=== PATIENT | male | born 1935 | race Caucasian/White ===

== ENCOUNTER 2024-12-03 13:33 | Outpatient (AMB) | payer OTHER, SELFPAY ==
--- NOTE | 2024-12-03 13:37 | A.OFFVIS_ITS ---
Intake Visit Reasons: 3 mnts f/u Accompanied by: Spouse Allergies oxycodone Allergy (Unknown, Verified 12/03/24 13:46) Unknown Medication List - Last Reconciled 12/03/24 by Allie Rodriguez CNP apixaban (Eliquis) 5 mg PO BID atenolol 100 mg PO DAILY diltiazem HCl CD 240 mg PO DAILY fluticasone propion-salmeterol 250-50 mcg/dose 1 ea inhalation BID furosemide 40 mg PO DAILY memantine (Namenda) 5 mg PO BID 90 days metformin ER 500 mg PO BID mirabegron ER (Myrbetriq) 50 mg PO DAILY montelukast 10 mg PO DAILY potassium chloride ER 20 mEq PO DAILY pramipexole mg PO quetiapine mg PO TID sertraline 50 mg PO DAILY HPI Comments Details: 89-year-old man with afib, PVD, DM, 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 He was doing okay. Memantine seemed to be helping with memory some. He would get stuck for words and have some trouble with word recall during conversations, but felt this was not happening as often since starting medication. Previously, he was having some hallucinations when falling asleep in the chair, but none recently. No behavioral problems. Sleep was okay. Mood was okay. 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, secondary Review of Systems Const Denies chills, Denies daytime sleepiness, Denies difficulty sleeping, Denies fatigue, Denies fever(s), Denies frequent falls, Denies headache(s), Denies increased appetite, Denies poor appetite, Denies snoring, Denies weakness, Denies weight gain and Denies weight loss Eyes Denies loss of vision ENT Denies vertigo, Denies dizziness and Denies headache(s) Card Denies chest pain at rest, Denies chest pain with activity, Denies syncope, De nies leg edema and Denies palpitations Resp Denies snoring GI Denies constipation, Denies heartburn, Denies diarrhea and Denies nausea Denies urinary frequency, Denies urinary incontinence and Denies urinary urgency Musc Denies abnormal gait, Denies numbness and Denies tingling Skin/Breast Denies dry skin and Denies rash Neuro Denies abnormal gait, Denies vertigo, Denies dizziness, Denies syncope, Denies frequent falls, Denies headache(s), Denies lack of coordination, Denies loss of vision, Reports memory loss, Denies numbness, Denies restless legs, Denies seizure-like activity, Denies tingling, Denies paresthesias, Denies tremor(s) and Denies weakness Psych Denies anxiety, Denies depression, Denies auditory hallucinations, Reports memory loss, Denies visual hallucinations and Denies suicidal ideation Endo Denies fatigue and Denies palpitations Physical Exam Const Other: General Appearance:? normal, in no acute distress. Skin:? no rashes, no significant birthmarks. Heart:? S1, S2 normal, no murmurs. Lungs:? clear anteriorly and posteriorly. Extremities:? R AKA Psych:? alert, cooperative with exam. Neuro Other: Mental Status:?Alert and awake with normal spontaneity of speech, fluency, and comprehension. Cranial Nerves:?Pupils are equal, round and reactive to light. External occular muscles are intact. Visual jacinto are full. Face is symmetrical. Facial sensations are normal. Tongue is midline. Palate elevates symmetrically. Shoulder shrugging is normal. Hearing to bedside conversation is normal. Motor Examination:?R AKA Sensory Exam:?....? Coordination:?No ataxia,?no titubation.? Gait Exam: In wheelchair Cerebellar Signs:?Pdkaly-sa-capl is okay. Extrapyramidal System:?No tremor, rigidity with normal facial expressions.? Pronator Drift:?Not present.? Involuntary Movements:?No tremors seen.? Speech:?Normal.? Assessment & Plan Assessment & Plan (1) Dementia with Lewy bodies: Code(s): G31.83 - Neurocognitive disorder with Lewy bodies; F02.80 - Dementia in other diseases classified elsewhere, unspecified severity, without behavioral disturbance, psychotic disturbance, mood disturbance, and anxiety Category: Medical Qualifiers: Dementia severity: unspecified severity Dementia behavioral or psychological symptom: unspecified whether behavioral, psychotic, or mood disturbance or anxiety Qualified Code(s): G31.83 - Neurocognitive disorder with Lewy bodies; F02.80 - Dementia in other diseases classified elsewhere, unspecified severity, without behavioral disturbance, psychotic disturbance, mood disturbance, and anxiety Plan: Continue quetiapine 25mg 1 tablet three times a day Continue memantine 5mg 1 tablet twice a day (2) Parkinsonism, secondary: Code(s): G21.9 - Secondary parkinsonism, unspecified Category: Medical Qualifiers: Secondary Parkinsonism type: unspecified secondary Qualified Code(s): G21.9 - Secondary parkinsonism, unspecified Plan: Continue pramipexole 0.125mg 1 tablet three times a day Continue rasagiline 0.5mg 1 tablet daily (3) Depression: Code(s): F32.A - Depression, unspecified Category: Medical Qualifiers: Depression Type: unspecified Qualified Code(s): F32.A - Depression, unspecified Plan: Continue sertraline 25mg 1 tablet daily (4) Multifactorial gait disorder: Code(s): R26.89 - Other abnormalities of gait and mobility Category: Medical Plan . Coding Level of Care Code [facility] Pt Level 4 (95030) Diagnoses Lewy body dementia, unspecified dementia severity, unspecified whether behavioral, psychotic, or mood disturbance or anxiety G31.83; F02.80 Dementia severity: unspecified severity Dementia behavioral or psychological symptom: unspecified whether behavioral, psychotic, or mood disturbance or anxiety Secondary parkinsonism, unspecified secondary Parkinsonism type G21.9 Secondary Parkinsonism type: unspecified secondary Depression, unspecified depression type F32.A Depression Type: unspecified Multifactorial gait disorder R26.89
--- OUTSIDE RECORDS SUMMARY | 2024-12-03 13:38 | XMS_ITS | Clinical Summary ---
Author Organization [facility] Address [address] [place] [address] Care Team Providers Care Service Center Appraiser Name Role Phone Aurora Solares MD Primary Care Provider [phone] Allergies Active Allergy Reactions Criticality Noted Date Comments House Dust Rhinorrhea 04/02/2018 Medications montelukast (SINGULAIR) 10 mg tablet Take 10 mg by mouth. Active budesonide-for moteroL (Symbicort) 160-4.5 mcg inhaler Inhale 2 puffs by mouth 2 times a day. 1 Active fluticasone propionate (FLONASE) 50 mcg/actuation nasal spray Administer 1 spray into each nostril daily as needed for rhinitis. 1 Active potassium chloride (K-TAB) 20 mEq CR tablet Take 1 tablet (20 mEq total) by mouth daily. 1 Active albuterol (PROAIR HFA,VENTOLIN HFA) 90 mcg inhaler Inhale 2 puffs (180 mcg total) by mouth every 6 hours as needed for wheezing or shortness of breath. 1 Active atenoloL (TENORMIN) 100 mg tablet Take 1 tablet (100 mg total) by mouth daily. 1 Active dilTIAZem CD (CARDIZEM CD) 240 mg 24 hr capsule Take 1 capsule (240 mg total) by mouth daily. 1 Active furosemide (LASIX) 40 mg tablet Take 1 tablet (40 mg total) by mouth daily. 1 Active pramipexole (MIRAPEX) 0.125 mg tablet Take 1 tablet (0.125 mg total) by mouth 3 times a day. 1 Active QUEtiapine (SEROquel) 50 mg tablet Take 1 tablet (50 mg total) by mouth nightly. 1 Active vitamin D3 25 mcg (1,000 unit) capsule Take 2 capsules (2,000 Units total) by mouth daily. 1 Active acetaminophen (TYLENOL) 325 mg tablet Take 2 tablets (650 mg total) by mouth every 6 hours as needed for fever. 1 Active dabigatran (PRADAXA) 150 mg capsule Take 1 capsule (150 mg total) by mouth every 12 hours. 1 Active docusate sodium (COLACE) 100 mg capsule Take 1 capsule (100 mg total) by mouth 2 times a day. 1 Active miconazole 2% powder Apply topically to the affected area 2 times a day. 1 Active sodium chloride 0.9% injection Infuse 0.3-1 Syringes (3-10 mL total) intravenously See admin instructions. 1 Active heparin 10 unit/mL syringe flush 5-15 mL by intra-catheter route every 12 hours. 1 Active heparin 10 unit/mL syringe flush 5-15 mL by intra-catheter route See admin instructions. 1 Active polyethylene glycol 3350 (MIRALAX) 17 gram packet Take 1 packet (17 g total) by mouth daily. Mix powder in 4 to 8 oz of water, juice, coffee, or tea. 1 Active senna (SENOKOT) 8.6 mg tablet Take 2 tablets (17.2 mg total) by mouth 2 times a day as needed for constipation. 1 Active oxyCODONE IR (ROXICODONE) 5 mg tablet Take 0.5-1 tablets (2.5-5 mg total) by mouth every 6 hours as needed for pain. Max Daily Amount: 20 mg 20 tablet 1 Active Active Problems Problem Noted Date Diagnosed Date Parkinson's disease dementia 06/29/2020 MRSA bacteremia 06/29/2020 Assessment & Plan (07/11/2020 12:11 PM EST): WBC uptrending on 06/29 to 17.7 in setting of septic arthritis and necessary AKA on 06/23. Stump site developed erythema, BCx obtained 08/14 MRSA. LA negative at 1.5. ID consulted. TTE did not show vegetations. 07/01 repeat BCx positive 05/16 GPC in clusters. His culture from 07/03 has remained negative. Ultimately wound on leg closed on 07/[address] in [address]. ID recommended 4 weeks of vancomycin from D1 07/03, to receive vanco through 07/30/2020. PICC line for half-way antibiotics placed on 07/08. Maintained on vancomycin per AUC:IVAN through the pharmacy target trough of 10-20. While on antibiotic therapy, he will need weekly CBC with differential, CMP's, and vancomycin troughs faxed to Dr Fernandes. . An appointment with infectious disease has been scheduled for the patient on 07/21/2020. 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 Required repeat revision on 06/30 for infection at amputatoin site. Went back to OR on 07/02 and 07/04 with debridement and lateral closure. Went to OR again 07/07 for closure and Vac dressing at the incision site. Managed by ortho. -Management per Ortho Septic arthritis of knee 06/09/2020 Assessment & Plan (07/09/2020 12:02 PM EST): 3 I+D and washouts while admitted. Ultimately decided to have AKA after discussion with orthopedic team and family. OR on 06/24 for AKA and tolerated procedure well. Subsequently he has grown MRSA and see above for further details. Had washout of AKA site on 07/02, 07/04, 07/07 with closure, with vac still in place as of 07/09. Management per ortho. A-fib 06/09/2020 Assessment & Plan (07/10/2020 2:02 PM EST): Afib, on dabigatran (Pradaxa) 150mg. CHADS VASc is 4 (age = 4, HTN, CHF.) No indication for bridging in the perioperative period and Pradaxa was held due to frequent OR visits. His HR has been elevated at times, but options limited for rate control as his BP has been borderline at times. On home atenolol 100mg daily and diltiazem 240mg daily. While inpatient, atenolol 100mg daily was continued and dilt was transitioned to 60 Q6 with holding parameters in the setting of frequent OR visits. Dabigatran 150 BID was resumed evening of 07/08 after PICC placement. - Rate control: atenolol 100mg daily, dilt 60mg q6 - can consider switching dilt to CD formulation 240 daily closer to discharge - Anticoagulation: dabigatran 150mg PO BID restarted Parkinson disease 06/09/2020 Assessment & Plan (07/11/2020 12:12 PM EST): On home pramipexole 0.125mg 3 times a day. Takes quetapine (Seroquel) 25 mg at bedtime. Has had hallucinations and confusion postop before. At risk for delirium, given multiple trips to the OR. Maintained on delirium precautions: Window bed, frequent reorientation, promote sleep-wake cycle, avoid sedating medications. Cifuentes discontinued. Avoided benedryl, hydroxyzine and other anticholinergics. Avoided benzodiazepines. Continued home pramipexole and uptitrated Seroquel to 50mg nightly with good effect. - Continue home pramipexole 0.125 mg TID for movement disorder - Continue Seroquel 50 mg nightly and seems to be doing well - minimize restraints, emphasize reorientation HTN (hypertension) 06/09/2020 Assessment & Plan (07/09/2020 12:01 PM EST): On home Atenolol 100mg every day and diltiazem 240mg every day. His blood pressures have been OK to borderline low earlier in the hospitalization, but now seems to be improved and stable. Was continued on atenolol 100mg daily and diltiazem was changed to 60 Q6h. He has not reported any episodes of light headed or dizziness. Consider switching diltiazem to long acting formulation closer to discharge. - atenolol 100mg PO daily and diltiazem 60 PO Q6h HARDIK (obstructive sleep apnea) 06/09/2020 Assessment & Plan (07/09/2020 11:55 AM EST): Ordered for CPAP but not compliant. Ordered for CPAP inpatient however noncompliant, stated it feels uncomfortable and not able to tolerate. Asthma 06/09/2020 Assessment & Plan (07/09/2020 11:53 AM EST): On home Symbicort BID and Singulair qhs, with fluticasone BID prn allergies and Albuterol inhaler prn. Saturating well on RA, no respiratory distress and no wheezing on exam. Continued home meds. - Continue Symbicort and Singulair CHF (congestive heart failure) 06/09/2020 Assessment & Plan (07/10/2020 2:04 PM EST): Hx of CHF (no echo on file, echo per chart review mild to moderate , diffuse thickening of the aortic cusp with reduced excursion and 1+ MR, EF 60-65%). Per pharmacy, hasn't filled furosemide since February. However, patient reported that he has been taking Lasix 40mg twice daily. He is uncertain why the last refill was in February, reports that his helps with his medications as has had some difficulty. Also on other cardiac meds per afib section. He has appeared to be comfortable and close to euvolemic on exam in beginning of hospitalization, thus lasix was held due to frequent OR trips. 07/07/20 he was noted to be slightly more swollen / edematous in his upper extremities, weight slightly up as well. He was started on lasix 40 daily on 07/07 and he diuresed well. Continued on lasix 40 daily and should have I&Os monitored and consider holding or decreasing dose depending on output. - Continue furosemide 40mg daily for now given stable labs and significant scrotum edema. Goal ~ -500 cc per day - monitor urine output and weights - monitor lytes, Cr PVD (peripheral vascular disease) 06/09/2020 Mobility impaired Impaired mobility and ADLs Social History Tobacco Use Types Packs/Day Years Used Date Smoking Tobacco: Never Smokeless Tobacco: Never Alcohol Use Standard Drinks/Week Comments Yes 0 (1 standard drink = 0.6 oz pur e alcohol) social Sex and Gender Information Value Date Recorded Sex Assigned at Not on file Legal Sex Male 4:25 PM EST Gender Identity Not on file Sexual Orientation Not on file Last Filed Vital Signs Vital Sign Reading Time Taken Comments Blood Pressure 102/62 07/15/2020 11:20 AM EST Pulse 67 07/15/2020 11:00 AM EST Temperature 37 C (98.6 F) 07/15/2020 11:00 AM EST Respiratory Rate 18 07/15/2020 11:0 0 AM EST Oxygen Saturation 95% 07/15/2020 11: 00 AM EST Inhaled Oxygen Concentration - - Weight 80.2 kg (176 lb 12.9 oz) 07/07/2020 8:06 PM EST Height 175.3 cm (5' 9 ) 06/30/2020 2:44 PM EST Body Mass Index 26.11 06/30/2020 2:44 PM EST Plan of Treatment Health Maintenance Due Date Last Done Comments Pneumococcal Vaccine: 50+ Years (1 of 2 - PCV) 1954 DTaP,Tdap,and Td Vaccines (1 - Tdap) 07/25/1959 Zoster Vaccines (1 of 2) 07/25/1987 RSV Vaccine (60+ years old and patients) (1 - 1-dose 75+ series) 2012 Basic Metabolic Panel 07/15/2021 07/15/2020 , 07/14/2020, 07/13/2020, Additional history exists COVID-19 Vaccine ( season) 2024 Alcohol/Substance Use Screening 05/13/2024 Depression Screening and Follow-Up 05/13/2024 Health Care Proxy Review 05/13/2024 Social Drivers of Health Annual Screening 05/13/2024 Influenza Vaccine (#1) 2025 , 01/30/2018, 04/03/2017 Hepatitis B Vaccines Aged Out No long er eligible based on patient's age to complete this topic Procedures * Due to [employer] law, this organization might not be sharing negative HIV tests. Procedure Name Priority Date/Time Associated Diagnosis Comments BASIC METABOLIC PANEL Routine 07/15/2020 8:01 AM EST from Last 3 Months or Most Recently Relevant to Health Maintenance Results * Due to [employer] law, this organization might not be sharing negative HIV tests. * (ABNORMAL) Basic Metabolic Panel (07/15/2020 8:01 AM EST) NA 141 135 - 145 mmol/L 07/15/2020 8:46 AM EST [facility] K 3.7 3.5 - 5.3 mmol/L 07/15/2020 8:46 AM EST [facility] Cl 105 97 - 110 mmol/L 07/15/2020 8:46 AM EST [facility] CO2 31 24 - 32 mmol/L 07/15/2020 8:46 AM EST [facility] BUN 14 7 - 23 mg/dL 07/15/2020 8:46 AM EST [facility] Creatinine 0.80 0.60 - 1.30 mg/dL 07/15/2020 8:46 AM EST [facility] Glucose 135(H) 70 - 99 mg/dL 07/15/2020 8:46 AM EST [facility] Calcium 9.2 8.7 - 10.7 mg/dL 07/15/2020 8:46 AM EST [facility] Anion Gap 5 5 - 15 07/15/2020 8:46 AM EST [facility] eGFR Non- 83(L) >=90 mL/min/BS A 07/15/2020 8:46 AM EST [facility] eGFR >90 >=90 mL/min/BS A 07/15/2020 8:46 AM EST [email or web address] Comment: Units = mL/min/1.73 m2 Glomerular Filtration Rate (GFR) is estimated based on the CKD-EPI Creatinine Equation (2009). 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 06/29/2020 06/29/[address] [place] [address] [place] [address] Advance Directives Documents on File Type Date Recorded Patient Audit Intern Expl anation Health Care Proxy 06/09/2020 1:39 PM 01-20 * Full Code (Latest Code Status on File) Date Activated Date Inactivated Comments 07/04/2020 5:38 PM 07/15/2020 6:27 PM * Full Code Date Activated Date Inactivated Comments 06/29/2020 6:38 PM 07/04/2020 5:38 PM * Presumed Full Code Date Activated Date Inactivated Comments 06/23/2020 5:05 PM 06/29/2020 6:38 PM * Full Code Date Activated Date Inactivated Comments 06/13/2020 3:09 PM 06/23/2020 5:05 PM * Full Code Date Activated Date Inactivated Comments 06/09/2020 12:26 AM 06/13/2020 3:09 PM Healthcare Agents on File Name Relationship Healthcare Agent Relationshi p Communication Sheryl Uriel Spouse Health Care Agent [phone] (Home) Malika Clements Daughter [facility] Care [facility] Care Teams Service Center Appraiser Relationship Specialty Start Date End Date Aurora Solares MD [address] [place] [address] [phone] PCP - General 06/16/20
--- OUTSIDE RECORDS SUMMARY | 2024-12-03 13:39 | XMS_ITS | Clinical Summary ---
Author Organization [place] [address] [facility] Building Address [address] [place] [address] Phone Care Team Providers Care Clinical Data Assistant Name Role Phone Filippo Keita MD Primary Care Provider Allergies Active Allergy Reactions Criticality Noted Date Comments Bee Pollen 08/29/2020 House Dust Runny nose 04/02/2018 Oxycodone 11/01/2023 Medications blood-glucose meter kit 1 Kit by Does not apply route 2 times daily for 360 days. 1 Active ZINC ORAL Take by mouth. Activ e apixaban (Eliquis) 5 mg tablet TAKE ONE TABLET BY MOUTH TWICE A DAY 4 Active ascorbic acid, vitamin C, 500 mg capsule Take by mouth. Acti ve ferrous sulfate 325 mg (65 mg elemental iron) tablet Take 1 tablet by mouth daily. Active mirabegron (MYRBETRIQ) 25 mg 24 hr tablet Take 2 tablets (50 mg total) by mouth 1 (one) time each day. Active pramipexole (MIRAPEX) 0.125 mg tablet TAKE ONE TABLET BY MOUTH THREE TIMES A DAY 2 Active rasagiline (AZILECT) 0.5 mg tablet Take 1 tablet by mouth daily. Active sertraline (ZOLOFT) 50 mg tablet Take 1 Tablet by mouth every morning. Active doxycycline (ADOXA) 100 mg tablet Take 1 tablet (100 mg total) by mouth 2 (two) times a day. 4 Active potassium chloride (KLOR-CON M20) 20 mEq CR tablet TAKE ONE TABLET BY MOUTH EVERY DAY 90 tablet 1 5 Active furosemide (LASIX) 40 mg tablet TAKE ONE TABLET BY MOUTH EVERY MORNING 90 tablet 1 5 Active dilTIAZem CD (CARDIZEM CD) 240 mg 24 hr capsule TAKE ONE CAPSULE BY MOUTH ONCE DAILY 90 capsule 1 5 Active atenoloL (TENORMIN) 100 mg tablet TAKE ONE TABLET BY MOUTH ONCE DAILY 90 tablet 1 5 Active montelukast (SINGULAIR) 10 mg tablet TAKE ONE TABLET BY MOUTH AT BEDTIME 90 tablet 1 5 Active blood sugar diagnostic (FreeStyle Lite Strips) test strip Use as instructed 100 each 2 5 Active memantine (NAMENDA) 5 mg tablet Take 1 tablet (5 mg total) by mouth 2 (two) times a day. 5 Active blood-glucose sensor (FreeStyle Imani 3 Plus Sensor) device Change sensor every 14 days 2 each 11 5 Active blood-glucose,r eceiver,cont (FreeStyle Imani 3 [place]) misc Use daily to check BS 1 each 5 Active fluticasone-marco antonio meterol (ADVAIR DISKUS) 250-50 mcg/dose diskus inhaler Inhale 1 puff by mouth 2 (two) times a day. Rinse mouth with water after use to reduce aftertaste and incidence of candidiasis. Do not swallow. 60 each 2 5 01/17/20 25 Active ketorolac (ACULAR) 0.5 % ophthalmic solution 5 Active cetirizine (ZyrTEC) 10 mg tablet Take 1 tablet (10 mg total) by mouth 1 (one) time each day. 90 each 5 01/17/20 25 Active metFORMIN XR (GLUCOPHAGE-XR) 500 mg 24 hr tablet TAKE ONE TABLET BY MOUTH TWO TIMES A DAY WITH MEALS; DO NOT CRUSH, CHEW OR SPLIT 180 tablet 1 5 Active latanoprost (XALATAN) 0.005 % ophthalmic solution Administer 1 drop into both eyes at bedtime. 5 Active Restasis 0.05 % ophthalmic emulsion Administer 1 drop into both eyes every 12 (twelve) hours. 5 Active albuterol HFA (PROAIR HFA ; PROVENTIL HFA ; VENTOLIN HFA) 90 mcg/actuation inhalerIndicati ons:Asthma, unspecified asthma severity, unspecified whether complicated, unspecified whether persistent Inhale 2 puffs by mouth every 6 (six) hours if needed for wheezing. every 4 to 6 hours as needed 18 g 3 5 Active albuterol HFA (PROAIR HFA ; PROVENTIL HFA ; VENTOLIN HFA) 90 mcg/actuation inhaler INHALE 1 TO 2 PUFFS BY MOUTH EVERY 4 TO 6 HOURS NEEDED 8 11/19/19 25 Discontin ued(Reord er) albuterol HFA (PROAIR HFA ; PROVENTIL HFA ; VENTOLIN HFA) 90 mcg/actuation inhaler Inhale 2 puffs by mouth every 6 (six) hours if needed for wheezing. every 4 to 6 hours as needed 18 g 3 5 11/21/19 25 Discontin ued(Reord er) Hospital, Clinic, or Other Facility Administered Medication Ordered Dose Route Frequency Start Date End Date Status perflutren lipid microsphere (DEFINITY) 1.3 mL in sodium chloride 0.9% 8.7 mL injection 10 mL IV Once in imaging 11/11/2024 11/11/2024 End ed Active Problems Problem Noted Date Diagnosed Date Cellulitis of leg 11/16/2024 Leg edema 11/16/2024 Amputation stump complication ([facility] V24, [facility] V28) 09/10/2024 Aortic stenosis 12/18/2021 Overview (03/12/2024): Last Assessment & Plan: Mean andAortic stenosis is only moderate. Mean and peak gradients of 20 and 30.3 mmHg respectively with a VTI ratio unchanged from prior echo at 0.23 and aortic valve area 1.1 cm . He is asymptomatic. We will continue to follow. Assessment & Plan (08/24/2024 12:04 PM EDT): He does endorse worsening breathlessness when he uses his prosthesis in his walker. He appears to be euvolemic upon exam today. He continues to endorse good urine output on his current dose of Lasix. We will update surveillance echocardiogram to further evaluate progression of aortic stenosis. Orders: Transthoracic echocardiogram (TTE) complete with PRN contrast, bubble, strain, and 3D order panel; Future perflutren lipid microsphere (DEFINITY) 1.3 mL in sodium chloride 0.9% 8.7 mL injection Uncontrolled type 2 diabetes mellitus with hyperglycemia ([facility] V24, [facility] V28) 02/20/2021 PVD (peripheral vascular disease) ([facility] V24) 09/01/2020 Lumbar radiculopathy 09/01/2020 MRSA bacteremia 09/01/2020 Osteoarthritis of left knee 09/01/2020 Quadriceps tendon rupture 09/01/2020 Overview (03/12/2024): R leg, pt was at work 03/23/2019, turned quickly and felt a pop. s/p tendon repair at [facility] 04/2019. Adm to [facility] 02/2020 w/ MSSA bacteremia and septic arthritis of R knee w/ involvement of previous quad repair. Transferred/admitted to [facility] 06/08/2020, D/C 07/15/2020. 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, right ([facility] V24, [facility] V28) 06/27/2020 Asthma 06/09/2020 HARDIK (obstructive sleep apnea) 06/09/2020 Parkinson's disease dementia ([facility] V24, [facility] V28) 06/09/2020 Septic arthritis of knee ([facility] V24, [facility] V 28) 06/09/2020 Lumbar back pain with radicu lopathy affecting right lower extremity 10/02/2018 CHF (congestive heart failure) ([facility] V24, [facility] V28) 01/17/2018 Overview (03/12/2024): Last Assessment & Plan: Volume status appears acceptable today. Continue furosemide. He will call the office or make any more than 3 pounds in 1 day or 5 pounds in 1 week. Low-salt diet encouraged. Assessment & Plan (08/24/2024 12:04 PM EDT): Appears to be euvolemic upon exam today. He will continue on his current dose of furosemide. Encouraged to continue to follow a low-sodium diet and perform daily weights. Patient will reach out to our office with a weight gain of 2 pounds in 1 day or 5 pounds in 5 days accompanied by worsening peripheral edema, shortness of breath or abdominal distention. Allergic rhinitis 12/09/2017 Dyslipidemia 12/09/2017 Overview (03/12/2024): Last Assessment & Plan: Last lipid panel from December 2021. Total cholesterol 119, HDL 35, LDL 54. Not on statin therapy. Vitamin D insufficiency 12/09/2017 Bursitis of right hip 11/05/2017 Right-sided low back pain without sciatica 11/05 Left knee pain 09/19/2017 Overview (03/12/2024): Comments: x-rays left knee 08/20/17 = severe OA Atrial fibrillation (CMS/HCC V24, CMS/HCC V28) 0 05/23/2017 Overview (03/12/2024): On Pradaxa Last Assessment & Plan: Chronic atrial fibrillation. Rate controlled on atenolol and diltiazem, continue. He is on Eliquis 2.5 mg twice daily and he was on this dose due to his age and weight. His prosthesis add 7.5 pounds to his weight which has to be subtracted at each visit and calculated. Back when he was started on the Eliquis his weight was 140 pounds with prosthesis therefore subtracting this out made his weight less than 60 kg. He is now greater than 60 kg. Based off age, weight, and renal function he should be on Eliquis 5 mg twice daily for CVA prophylaxis. Him going to increase this dose today. He verbalized understanding of taking the new dose. Assessment & Plan (08/24/2024 12:04 PM EDT): Chronic atrial fibrillation. He is rate controlled with atenolol and diltiazem. Continue to be anticoagulated with Eliquis as his is greater than 60 kg and his creatinine is less than 1.5. Educated on risks and benefits of continuing with anticoagulation including increased risk for hemorrhage and decreased risk for stroke. Encouraged to seek emergent medical attention should the patient sustain a fall involving a head strike. The patient understands these risks and agrees to continue. HTN (hypertension) 05/23/2017 Overview (03/12/2024): Last Assessment & Plan: 110/70 in office today, well-controlled on current therapy. Continue regimen as above. Assessment & Plan (08/24/2024 12:04 PM EDT): Acceptable during today's exam with a reading of 110/64. I have made no changes to his medications. He will continue on atenolol, diltiazem and Lasix. Educated on the importance of diet lifestyle to help further assist in reducing blood pressure. The patient was encouraged to follow low-salt low-fat diet, make purposeful strides towards weight loss, and engage in routine aerobic exercise as tolerated. Orders: ECG 12 lead Erectile dysfunction 05/23/2017 GERD (gastroesophageal reflux disease) 8 Inguinal hernia 05/23/2017 Overview (03/12/2024): right Insomnia 05/23/2017 Parkinson's disease ([facility] V24, [facility] V28) 0 05/23/2017 Encounters Date Type Department Care Team Description 11/20/2024 Telephone Pulmonolgy [facility] [address] [address] Joselin Lantigua MD Medication Problem 11/18/2024 10:45 AM EDT [facility] [address] [place] [address] Joselin Lantigua MD Pneumonia of both lower lobes due to infectious organism (Primary Dx); Moderate asthma, unspecified whether complicated, unspecified whether persistent; PLMD (periodic limb movement disorder); Seasonal allergic rhinitis due to pollen; HARDIK (obstructive sleep apnea) 11/11/2024 1:00 PM EDT Ancillary Procedure [facility] [address] [place] [address] Aortic valve stenosis, etiology of cardiac valve disease unspecified 10/12/2024 10:00 AM EDT Consult Internal Medicine - [address] [place] [address] Filippo Keita MD Pre-operative clearance (Primary Dx); Uncontrolled type 2 diabetes mellitus with hyperglycemia ([facility] V24, [facility] V28); Paroxysmal atrial fibrillation ([facility] V24, [facility] V28); Blurred vision 09/22/2024 11:30 AM EDT Consult Endocrinology - [address] [phone] Fabiana Mauricio PA Uncontrolled type 2 diabetes mellitus with hyperglycemia ([facility] V24, [facility] V28) (Primary Dx) from Last 3 Months Immunizations Name Administration Dates Next Due Influenza trivalent, 0.5mL ( Fluad) 65yo and older 02/03/2024,02/08/2021 Influenza, Unspecified 04/12/2023 Network SARS-CoV-2 COVID-19, mRNA, LNP-S, preservative free 03/09/2021,09/03/2020,08/12/2020 Pneumococcal, Unspecified 07/19/2022,07/13/2022 Td Tetanus diptheria (Tdvax) 7yo and older 05/13 Zoster recombinant (Shingrix ) 19yo and older 2022 Surgical History Surgery Date Site/Laterality Comments HERNIA REPAIR PROCEDURE:HERNIA REPAIR PROSTATECTOMY PROCEDURE:PROSTATECTOMY COLONOSCOPY 04/05/2010 PROCEDURE: HISTORICAL COLONOSCOPY OTHER SURGICAL HISTORY 06/23/2020 Right PROCEDURE: HISTORICAL ABOVE KNEE AMP; COMMENT: R leg failed repair of extensor mechanism w/ subsequent osteomyelitis. OTHER SURGICAL HISTORY 06/2020 Right PROCEDURE: NC INCISION & DRAINAGE ABSCESS COMPLICATED/MULTIPLE; COMMENT: Chronic osteomyelitis R knee, 2, 2/4, 06/21, 06/30, and post amp I+D of R residual limb 07/04/2020 HERNIA REPAIR N/A PROCEDURE: HISTORICAL HERNIA REPAIR/ING KNEE SURGERY Left PROCEDURE: HISTORICAL KNEE SURGERY; COMMENT: knee replacement Medical History Medical History Date Comments Cancer ([facility] V24, [facility] V28) DX:Cancer ([facility]) A-fib ([facility] V24, [facility] V28) DX:A-fib ([facility]) Hypertension DX:Hypertension Parkinson's disease ([facility] V24, [facility] V28) 05/23/2017 DX:Parkinson's disease ([facility]) Atrial fibrillation ([facility] V24, [facility] V28) 05/23/2017 DX:Atrial fibrillation ([facility]) ; COMMENT: On Pradaxa Erectile dysfunction 05/23/2017 DX:Erectile dysfunction Hypertension 05/23/2017 DX:Hypertension Prostate cancer ([facility] V24 , [facility] V28) 05/23/2017 DX:Prostate cancer ([facility]) Insomnia 05/23/2017 DX:Insomnia GERD (gastroesophageal reflux disease) DX:GERD (gastroesophageal reflux disease) Inguinal hernia 05/23/2017 DX:Inguinal naima ia; COMMENT: right Osteomyelitis of knee region ([facility] V24, [facility] V28) 08/29/2020 DX:Osteomyelitis of knee reg ion ([facility]) Osteoarthritis of left knee 09/01/2020 DX:O steoarthritis of left knee MRSA bacteremia 09/01/2020 DX:MRSA bacterem ia Vitamin D insufficiency 12/09/2017 DX:Vitam in D insufficiency 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, right ([facility] V24, [facility] V28) 08/29/2020 DX:S/P AKA (above knee amput ation) unilateral, right ([facility]) Right-sided low back pain wi thout sciatica 11/05/2017 DX:Right-sided low back pain without sciatica Bursitis of right hip 11/05/2017 DX:Bursiti s of right hip PVD (peripheral vascular dis ease) ([facility] V24) 09/01/2020 DX:PVD (peripheral vascular disease) ([facility]) History of prostate cancer 07/29/2017 DX:Hi story of prostate cancer; COMMENT: Comments: s/p prostatectomy -2008 Dyslipidemia 12/09/2017 DX:Dyslipidemia CHF (congestive heart failur e) ([facility] V24, [facility] V28) 01/17/2018 DX:CHF (congestive heart fa ilure) ([facility]) Allergic rhinitis 12/09/2017 DX:Allergic rh initis Asthma 06/09/2020 DX:Asthma Lumbar radiculopathy 09/01/2020 DX:Lumbar r adiculopathy 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 s/p tendon repair at [facility] 04/2019. Adm to [facility] 02/2020 w/ MSSA bacteremia and septic arthritis of R knee w/ involvement of previous quad repair. Transferred/admitted to [facility] 06/08/2020, D/C 07/15/2020. Type 2 diabetes mellitus wit hout complications ([facility] V24, [facility] V28) DX:Type 2 diabetes mellitus without complications ([facility]) Family History Medical History Relation Name Comments Coronary artery disease Brother Diabetes Brother Hypertension Daughter 1 Arthritis Father Other: othere Father hx of several staff infections. Arthritis Mother Diabetes Son Relation Name Status Comments Brother Alive Daughter 1 Alive Daughter 2 Alive Father Mother Sister 1 Alive Sister 2 Alive Son Alive Social History Tobacco Use Types Packs/Day Years Used Date Smoking Tobacco: Never Smokeless Tobacco: Never Tobacco Cessation:Counseling Given: Not Answered Alcohol Use Standard Drinks/Week Comments Yes 0 (1 standard drink = 0.6 oz pur e alcohol) Sex and Gender Information Value Date Recorded Sex Assigned at Male 07/07/2024 2:27 PM EST Legal Sex Male 10:20 AM EST Gender Identity Male 07/07/2024 2:27 PM EST Sexual Orientation Straight 07/07/2024 2: 27 PM EST Obstetrics History Last Filed Vital Signs Vital Sign Reading Time Taken Comments Blood Pressure 111/75 11/18/2024 10:34 AM EDT Pulse 61 11/18/2024 10:34 AM EDT Temperature 36.7 C (98 F) 11/18/2024 10:34 AM EDT Respiratory Rate 20 11/18/2024 10:34 AM EDT Oxygen Saturation 96% 11/18/2024 10:34 AM EDT Inhaled Oxygen Concentration - - Weight 77.6 kg (171 lb) 11/18/2024 10:34 AM EDT Height 175.3 cm (5' 9 ) 11/18/2024 10:34 AM EDT Body Mass Index 25.25 11/18/2024 10:34 AM EDT Plan of Treatment Upcoming Encounters Date Type Department Care Team (Late st Contact Info) Description 12/15/2024 1:[address] [facility] Scan [address] [place] [address] 12/23/2024 9:45 AM EDT Office Visit Endocrinology [address] [phone] Fabiana Mauricio PA [address] [place] [address] 02/18/2025 12:45 PM EDT Ancillary Procedure [address] [phone] 02/18/2025 1:30 PM EDT Office Visit [address] [phone] Joselin Lantigua MD [address] [place] [address] 03/16/2025 9:45 AM EST Office Visit Internal Medicine - [address] [phone] Filippo Keita MD [address] [place] [address] 03/25/2025 2:00 PM EST Office Visit [facility] [address] [place] [phone] Nicholas Hernández MD [address] [place] [phone] Health Maintenance Due Date Last Done Comments Diabetes: Annual Foot Exam 07/25/1945 Falls Risk Assessment 04/21/2022 Medicare Annual Wellness Visit 04/21/2022 Social Influencers of Health Screening 04/21/2022 COVID-19 Vaccine ( season) 2024 03/15/2023, 03/09/2021, 09/03/2020, Additional history exists Depression Screening 05/13/2024 Influenza Vaccine (#1) 2025 , 04/12/2023, 02/12/2023, Additional history exists Diabetes: Blood Sugar Control Test (HGBA1C) 03/25/2025 09/22/2024, 02/03/2024, 02/03/2024 Diabetes: Annual Retina Eye Exam 04/13/2025 04/13/2024 Hypertension/CHF/CAD Annual BMP Blood Test 09/22/2025 09/22/2024, 02/03/2024, 02/03/2024, Additional history exists Cholesterol Screening (Lipid Panel) 09/22/2029 09/22/2024, 02/03/2024, 02/03/2024 DTaP,Tdap,and Td Vaccines (2 - Td or Tdap) 05/13/2030 05/13/2020 Pneumococcal Vaccine: 50+ Years Completed 07/20/2022, 07/19/2022, 07/13/2022 Zoster Vaccines Completed 09/17/2022, 2022 RSV Immunization Adult Patients Completed 04/14/2024 HIB Vaccines Aged Out No longer eligi ble based on patient's age to complete this topic HPV Vaccines Aged Out No longer eligi ble based on patient's age to complete this topic Hepatitis A Vaccines Aged Out No long er eligible based on patient's age to complete this topic Hepatitis B Vaccines Aged Out No long er eligible based on patient's age to complete this topic IPV Vaccines Aged Out No longer eligi ble based on patient's age to complete this topic MMR Vaccines Aged Out No longer eligi ble based on patient's age to complete this topic Meningococcal ACWY Vaccine Aged Out N o longer eligible based on patient's age to complete this topic Meningococcal B Vaccine Aged Out No l onger eligible based on patient's age to complete this topic RSV Immunization Patients Under 20 months Aged Out No longer eligible based on patient's age to complete this topic Varicella Vaccines Aged Out No longer eligible based on patient's age to complete this topic Procedures Procedure Name Priority Date/Time Associated Diagnosis Comments TRANSTHORACIC ECHOCARDIOGRAM (TTE) COMPLETE W/ CONTRAST Routine 11/11/2024 1:45 PM EDT Aortic valve stenosis, etiology of cardiac valve disease unspecified COMPREHENSIVE METABOLIC PANEL Routine 09/22/2024 12:58 PM EDT Dyslipidemia Uncontrolled type 2 diabetes mellitus with hyperglycemia (CMS/HCC V24, CMS/HCC V28) LIPID PANEL WITH REFLEX TO DIRECT LDL Routine 09/22/2024 12:58 PM EDT Dyslipidemia Uncontrolled type 2 diabetes mellitus with hyperglycemia (CMS/HCC V24, CMS/HCC V28) COMPLETE BLOOD COUNT Routine 09/22/2024 12:58 PM EDT Paroxysmal atrial fibrillation (CMS/HCC V24, CMS/HCC V28) HEMOGLOBIN A1C Routine 09/22/2024 12:58 PM EDT Uncontrolled type 2 diabetes mellitus with hyperglycemia (CMS/HCC V24, CMS/HCC V28) MICROALBUMIN CREATININE URINE RATIO Routine 09/22/2024 12:58 PM EDT Uncontrolled type 2 diabetes mellitus with hyperglycemia (CMS/HCC V24, CMS/HCC V28) POC GLUCOSE Routine 09/22/2024 11:58 AM EDT Uncontrolled type 2 diabetes mellitus with hyperglycemia (CMS/HCC V24, CMS/HCC V28) POC GLUCOSE Routine 09/22/2024 11:31 AM EDT Uncontrolled type 2 diabetes mellitus with hyperglycemia (CMS/HCC V24, CMS/HCC V28) from Last 3 Months Results * (ABNORMAL) TRANSTHORACIC ECHOCARDIOGRAM (TTE) COMPLETE W/ CONTRAST (11/11/2024 1:45 PM EDT) Left At[facility] Minor [place] 7.6 cm CV PACS Left At[facility] Major [place] 7.8 cm CV PACS LA Area Sys (A2C) 30 cm2 CV PACS LA Area Sys (A4C) 28 cm2 CV PACS LA Volume (BP) 91 mL CV PACS LA Size 6.0 cm CV PACS RA Area 21.5 cm2 CV PACS RA 2D Volume 69 mL CV PACS AV Mean Gradient 29 mmHg CV PACS Ao VTI 78.0 cm CV PACS AV Peak Saul 3.5 m/s CV PACS AV Peak Gradient 50 mmHg CV PACS AV Area Continuity Equation 0.7 cm2 CV PACS AV Area Peak Velocity 0.7 cm2 CV PACS Aortic Sinus Valsalva 3.7 cm CV PACS Ascending Aorta 3.6 cm CV PACS IVC Proximal 2.4 cm CV PACS IVSD 1.2(A) 0.6 - 1.0 cm CV PACS LVIDD 5.5 4.2 - 5.8 cm CV PACS LVIDS 3.7 2.5 - 4.0 cm CV PACS LVOT Diameter 2.1 cm CV PACS LVOT Mean Saul 0.4 m/s CV PACS LVOT Mean Grad 1 mmHg CV PACS LVOT Mean Grad 1 mmHg CV PACS LVOT Mean Grad 1 mmHg CV PACS LVOT Mean Grad 1 mmHg CV PACS LVOT Peak VTI 14.9 cm CV PACS LVOT Peak Saul 0.7 m/s CV PACS LVOT Peak Gradient 2 mmHg CV PACS LVPWD 1.3(A) 0.6 - 1.0 cm CV PACS MV E' Tissue Velocity Lateral 10 cm/s CV PACS MV E' Tissue Velocity Septal 8 cm/s CV PACS LVOT Area 3.5 cm2 CV PACS LVOT Stroke Volume 52 mL CV PACS MV Deceleration [place] 7.4 m/s2 CV PACS E Wave Deceleration Time 134 119 - 242 ms CV PACS MV PHT 39 ms CV PACS MV Peak E Saul 1.02 m/s CV PACS MV Mean Gradient 1 mmHg CV PACS MV Mean Gradient 1 mmHg CV PACS MV Mean Gradient 1 mmHg CV PACS MV Mean Gradient 1 mmHg CV PACS MV Mean Gradient 1 mmHg CV PACS MV VTI 14.5 cm CV PACS Mitral Valve Max Velocity 1.0 m/s CV PACS MV Peak Gradient 4 mmHg CV PACS MV Area PHT 5.6 cm2 CV PACS MV Area Continuity Equation 3.6 cm2 CV PACS PV Acceleration Time 99 ms CV PACS PV Acceleration Time 81 ms CV PACS PV Acceleration Time 90 ms CV PACS PV Mean Gradient 1 mmHg CV PACS PV Mean Gradient 1 mmHg CV PACS PV VTI 15.7 cm CV PACS PV Peak Velocity 0.9 m/s CV PACS PV Peak Gradient 3 mmHg CV PACS RV Diastolic Basal Dimension 4.6(A) 2.5 - 4.1 cm CV PACS RV S' 9 cm/s CV PACS TAPSE 31 mm CV PACS TR Peak Velocity 2.92 m/s CV PACS TR Peak Gradient 34 mmHg CV PACS E/E' Ratio Septal 13 CV PACS E/E' Ratio Averaged 11 CV PACS Relative Wall Thickness ratio 0.47 CV PACS LVOT:AV VTI Index 0.19 CV PACS FS 33 % CV PACS LV Mass 2D 288 g CV PACS MV VTI:LVOT VTI ratio 1.0 CV PACS LVOT flow 138 mL/s CV PACS AV Velocity Ratio 0.20 CV PACS E/E' Ratio Lateral 10 CV PACS BSA 1.94 m2 CV PACS LA Volume Index (BP) 47 mL/m2 CV PACS LVIDD Index 2.85 cm/m2 CV PACS LVIDS Index 1.92 cm/m2 CV PACS LV Mass Index 2D 149(A) 50 - 102 g/m2 CV PACS LVOT Stroke Index 27 mL/m2 CV PACS LA Dimension Index 2D 3.1 cm/m2 CV PACS RA 2D Volume Index 36(A) 18 - 32 mL/m2 CV PACS ELVIRA Index (VTI) 0.34 cm2/m2 CV PACS ELVIRA Index (Pk Saul) 0.36 cm2/m2 CV PACS Ascending Aorta Index 1.87 cm/m2 CV PACS Right Ventricular Peak Systolic Pressure 42 mmHg CV PACS Est. RA Pressure 8 mmHg CV PACS Anatomical Region Laterality Modality Ultrasound Narrative 11/19/2024 2:39 PM EDT Left ventricle cavity size is normal. Left ventricular systolic function is in the normal range with an ejection fraction of 55-60%. No regional LV wall motion abnormalities noted. Left ventricle mild concentric hypertrophy. Right ventricle cavity is mildly enlarged. Right ventricular systolic function is normal. Mildly elevated right ventricular systolic pressure. Aortic valve demonstrates moderate stenosis. Compared to 2024 aortic stenosis appears similar. Left Ventricle Left ventricle cavity size is normal. There is mild concentric hypertrophy. Systolic function is normal with an ejection fraction of 55-60%. There are no regional LV wall motion abnormalities. Indeterminate diastolic function. Right Ventricle Right ventricle cavity is mildly dilated. Systolic function is normal. Left Atrium Left atrium cavity is moderately dilated. Right Atrium Right atrium cavity is mildly dilated. IVC/SVC Inferior vena cava structure is normal. RA pressures is estimated to be 8 mmHg (IVC diameter <21 mm and decreases <50% during inspiration). Mitral Valve The leaflets are mildly thickened. There is mild annular calcification. There is trace regurgitation. There is no evidence of mitral valve stenosis. Tricuspid Valve Tricuspid valve structure is normal. There is mild regurgitation with a central jet. The right ventricular systolic pressure is mildly elevated. Aortic Valve Number of aortic valve cusps cannot be determined. The leaflets are moderately thickened. There is no regurgitation. There is moderate stenosis. Pulmonic Valve There is no pulmonic valve regurgitation. Ascending Aorta The aorta appears normal in size. Pericardium Pericardium appears normal. There is no pericardial effusion. Study Details Overall the study quality was suboptimal. Definity contrast was given to enhance imaging. us Marly Corrales NP CV ECHO PROCEDURES Fin al Result * Lipid panel with reflex to direct LDL (09/22/2024 12:58 PM EDT) Cholesterol 162 0 - 200 mg/dL LAB CHEMISTRY METHOD 09/22/2024 4:45 PM EDT [facility] Triglycerides 126 0 - 150 mg/dL LAB CHEMISTRY METHOD 09/22/2024 4:45 PM EDT [facility] HDL 49 >=40 mg/dL LAB CHEMISTRY METHOD 09/22/2024 4:45 PM EDT [facility] LDL Calculated 88 0 - 100 mg/dL LAB CHEMISTRY METHOD 09/22/2024 4:45 PM EDT [facility] VLDL Cholesterol Nahum 25.2 mg/dL LAB CHEMISTRY METHOD 09/22/2024 4:45 PM EDT [facility] Non HDL Chol. (LDL+VLDL) 113 <145 mg/dL LAB CHEMISTRY METHOD 09/22/2024 4:45 PM EDT [facility] Chol/HDL Ratio 3.3 0.0 - 4.4 LAB CHEMISTRY METHOD 09/22/2024 4:45 PM EDT [facility] Blood Venous blood specimen / Unknown Venipuncture / Unknown 09/22/2024 12:58 PM EDT 09/22/2024 12:58 PM EDT us Filippo Keita MD LAB BLOOD ORDERABLES Final Res ult Performing Organization Address City/[facility]/ZIP Co de Phone Number [facility] [address] [place] [address], [place] [phone] * (ABNORMAL) Microalbumin creatinine urine ratio (09/22/2024 12:58 PM EDT) Creatinine, Urine 16.0 mg/dL LAB CHEMISTRY METHOD 09/22/2024 5:47 PM EDT [facility] Microalb, Ur <5.0 0.0 - 29.0 mg/L LAB CHEMISTRY METHOD 09/22/2024 5:47 PM EDT [facility] Microalb/Creat Ratio <31(H) <30 mg/g creat LAB CHEMISTRY METHOD 09/22/2024 5:47 PM EDT [facility] Urine Urine specimen obtained by clean catch procedure / Unknown Non-blood Collection / Unknown 09/22/2024 12:58 PM EDT 09/22/2024 12:58 PM EDT us Filippo Keita MD LAB URINE ORDERABLES Final Res ult [facility] [address] [place] [address], [place] [phone] * (ABNORMAL) Complete blood count (09/22/2024 12:58 PM EDT) WBC 5.3 4.8 - 10.8 K/[facility] LAB HEMETOLOGY METHOD 09/22/2024 2:45 PM EDT [facility] RBC 4.30(L) 4.50 - 5.50 M/mcL LAB HEMETOLOGY METHOD 09/22/2024 2:45 PM EDT [facility] Hemoglobin 13.1(L) 13.5 - 17.5 g/dL LAB HEMETOLOGY METHOD 09/22/2024 2:45 PM EDT [facility] Hematocrit 40.4(L) 42.0 - 54.0 % LAB [facility]OLOGY [facility] MCV 93.5 79.0 - 98.0 FL LAB HEMETOLOGY METHOD [facility]/22[facility]2024 2[facility] MCH 30.3 27.0 - 32.0 pcg LAB HEMETOLOGY METHOD 09/22/2024 2[facility] MCHC 32.4 32.0 - 37.0 g/dL LAB HEMETOLOGY METHOD 09/22/2024 2:45 PM [facility] RDW 14.7 11.0 - 15.0 % LAB HEMETOLOGY METHOD 09/22/2024 2:45 PM [facility] Platelets 186 130 - 400 K/mcL LAB HEMETOLOGY METHOD 09/22/2024 2:[facility] MPV 10.6 7.0 - 11.0 FL LAB HEMETOLOGY METHOD 09/22/2024 2:45 PM EDT [facility] NRBC 0.0 <1.0 % LAB HEMETOLOGY METHOD 09/22/2024 2:45 PM [facility] NRBC Absolute 0.00 <0.10 K/mcL LAB HEMETOLOGY METHOD 09/22/2024 2:45 PM [facility] Blood Venous blood specimen / Unknown Venipuncture / Unknown 09/22/2024 12:58 PM EDT 09/22/2024 12:58 PM EDT Filippo Keita MD LAB BLOOD ORDERABLES Final Res ult Performing Organization Address [facility]/ZIP Co de Phone Number [facility] [address] [place] [address], [place] [phone] * (ABNORMAL) Hemoglobin A1c (09/22/2024 12:58 PM EDT) Pathologist [facility] [place] Hemoglobin A1C 6.7(H) <6.5 % LAB CHEMISTRY METHOD 09/22/2024 10:24 PM EDT [facility] Mean Bld Glu Estim. 146 mg/dL LAB CHEMISTRY METHOD 09/22/2024 10:24 PM EDT [facility] Blood Venous blood specimen / Unknown Venipuncture / Unknown 09/22/2024 12:58 PM EDT 09/22/2024 12:58 PM EDT Fabiana AMBROSIO LAB BLOOD ORDERABLES Final Result Performing Organization Address [facility]/ZIP Co de Phone Number [facility] [address] [place] [address], [place] [phone] * (ABNORMAL) Comprehensive metabolic panel (09/22/2024 12:58 PM EDT) [facility] Sodium 140 133 - 145 mmol/L LAB CHEMISTRY METHOD 09/22/2024 4:55 PM EDT [facility] Potassium 3.8 3.5 - 5.5 mmol/L LAB CHEMISTRY METHOD 09/22/2024 4:55 PM EDT [facility] Chloride 104 96 - 110 mmol/L LAB CHEMISTRY METHOD 09/22/2024 4:55 PM EDT [facility] CO2 29 21 - 32 mmol/L LAB CHEMISTRY METHOD 09/22/2024 4:55 PM EDT [facility] Anion Gap 7 3 - 11 LAB CHEMISTRY METHOD 09/22/2024 4:55 PM [facility] Glucose 113(H) 70 - 100 mg/dL LAB CHEMISTRY METHOD 09/22/2024 4:55 PM [facility] BUN 24 5 - 25 mg/dL LAB CHEMISTRY METHOD 09/22/2024 4:55 PM [facility] Creatinine 1.08 0.70 - 1.30 mg/dL LAB CHEMISTRY METHOD 09/22/2024 4:55 PM [facility] eGFR 66 >=60 mL/min/1. 73m2 LAB CHEMISTRY METHOD 09/22/2024 4:55 PM [facility] Comment:Calculation based on the Chronic Kidney Disease Epidemiology Collaboration (CKD-EPI) equation refit without adjustment for race. BUN/Creatinine Ratio 22.2 LAB CHEMISTRY METHOD 09/22/2024 4:55 PM [facility] Calcium 9.2 8.5 - 10.5 mg/dL LAB CHEMISTRY METHOD 09/22/2024 4:55 PM [facility] AST (SGOT) 19 10 - 42 unit/L LAB CHEMISTRY METHOD 09/22/2024 4:55 PM [facility] ALT (SGPT) 29 10 - 60 unit/L LAB CHEMISTRY METHOD 09/22/2024 4:55 PM [facility] Alkaline Phosphatase 144(H) 42 - 121 unit/L LAB CHEMISTRY METHOD 09/22/2024 4:55 PM [facility] Total Protein 7.6 6.0 - 8.0 g/dL LAB CHEMISTRY METHOD 09/22/2024 4:55 PM [facility] Albumin 3.9 3.2 - 5.0 g/dL LAB CHEMISTRY METHOD 09/22/2024 4:55 PM [facility] Total Bilirubin 0.5 0.0 - 1.4 mg/dL LAB CHEMISTRY METHOD 09/22/2024 4:55 PM EDT [facility] Blood Venous blood specimen / Unknown Venipuncture / Unknown 09/22/2024 12:58 PM EDT 09/22/2024 12:58 PM EDT Filippo Keita MD LAB BLOOD ORDERABLES Final Res ult [facility] [address] [place] [address], * POC glucose manually resulted (09/22/2024 11:58 AM EDT) Only the most recent of2 resultswithin the time period is included. 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 Decision (hx) 01/26/2022 AD [place] DIRECTIVE Health Care Decision (hx) 01/26/2022 AD VALLE[employer]LLO DIRECTIVE Health Care Decision (hx) 01/08/2018 AD VALLECILLO DIRECTIVE Health Care Decision (hx) 01/08/2018 AD VALLECILLO DIRECTIVE Health Care Decision (hx) 01/08/2018 AD VALLECILLO DIRECTIVE Health Care Decision (hx) 01/08/2018 AD VALLECILLO DIRECTIVE Health Care Decision (hx) 01/08/2018 AD VALLECILLO DIRECTIVE Health Care Decision (hx) 01/08/2018 AD VALLECILLO DIRECTIVE Health Care Decision (hx) 01/08/2018 AD VALLECILLO DIRECTIVE Health Care Decision (hx) 01/08/2018 AD VALLECILLO DIRECTIVE Health Care Decision (hx) 01/08/2018 AD VALLECILLO DIRECTIVE Health Care Decision (hx) 01/08/2018 AD VALLECILLO DIRECTIVE Health Care Decision (hx) 01/08/2018 AD VALLECILLO DIRECTIVE Health Care Decision (hx) 01/08/2018 AD VALLECILLO DIRECTIVE Health Care Decision (hx) 01/08/2018 AD VALLECILLO DIRECTIVE Health Care Decision (hx) 01/08/2018 AD VALLECILLO DIRECTIVE Health Care Decision (hx) 01/08/2018 AD VALLECILLO DIRECTIVE Health Care Decision (hx) 01/08/2018 AD VALLECILLO DIRECTIVE Health Care Decision (hx) 01/08/2018 AD VALLECILLO DIRECTIVE Health Care Decision (hx) 01/08/2018 AD VALLECILLO DIRECTIVE Health Care Decision (hx) 01/08/2018 AD VALLECILLO DIRECTIVE Health Care Decision (hx) 01/08/2018 AD VALLECILLO DIRECTIVE Health Care Decision (hx) 01/08/2018 AD VALLECILLO DIRECTIVE Health Care Decision (hx) 01/08/2018 AD VALLECILLO DIRECTIVE Health Care Decision (hx) 01/08/2018 AD VALLECILLO DIRECTIVE Health Care Decision (hx) 01/08/2018 AD VALLECILLO DIRECTIVE Health Care Decision (hx) 01/08/2018 AD VALLECILLO DIRECTIVE Health Care Decision (hx) 01/08/2018 AD VALLECILLO DIRECTIVE Care Teams Clinical Data Assistant Relationship Specialty Start Date End Date Filippo Keita MD [address] [place] [id number] PCP - General Internal Medicine 03/21/24
--- OUTSIDE RECORDS SUMMARY | 2024-12-03 13:39 | XMS_ITS | Clinical Summary ---
Author Organization [facility] Address [address] [place] [address] Care Team Providers Care Crm Manager Name Role Phone Filippo Keita MD Primary Care Provider [phone] Allergies Active Allergy Reactions Criticality Noted Date Comments Dust 04/02/2018 Medications Medication Sig Dispensed Refills Start Date End Date Status PROAIR HFA 108 (90 Base) MCG/ACT inhaler 0 03/05/2018 Active atenolol (TENORMIN) tablet 100 mg 0 01/31/2018 Active furosemide (LASIX) 20 MG tablet 0 03/29/2018 Active pramipexole (MIRAPEX) 0.5 MG tablet 0 03/03/2018 Active CARTIA XT 240 MG 24 hr capsule 0 02/03/2018 Active montelukast (SINGULAIR) 10 MG tablet Take 10 mg by mouth every night at bedtime. 0 Active Cholecalciferol (VITAMIN D3) 1000 units CAPS Take by mouth. 0 Active pramipexole (MIRAPEX) 0.75 MG tablet 0 12/28/2019 Active QUEtiapine (SEROquel) 25 MG tablet 0 12/27/2019 Active fluticasone (FLONASE) 50 MCG/ACT nasal spray 0 12/16/2019 Active SYMBICORT 160-4.5 MCG/ACT inhaler 0 12/14/2019 Active doxycycline (VIBRAMYCIN) 100 MG capsule Take 1 capsule (100 mg total) by mouth 2 (two) times a day. 20 capsule 0 12/30/2023 Active betamethasone, augmented, (DIPROLENE) 0.05 % ointment Apply topically 2 (two) times a day. 30 g 0 02/06/2024 Active mupirocin (BACTROBAN) 2 % ointment Apply topically daily. 30 g 0 02/06/2024 Active amoxicillin-clavu lanate (Augmentin) 500-125 MG per tablet Take 1 tablet (500 mg total) by mouth 2 (two) times a day. 20 tablet 0 12/13/2023 Discontinued (Therapy completed) Active Problems Problem Noted Date Diagnosed Date Lumbar back pain with radicu lopathy affecting right lower extremity 10/02/2018 Family History Medical History Relation Name Comments Arthritis Father Arthritis Mother Relation Name Status Comments Father Mother Social History Tobacco Use Types Packs/Day Years Used Date Smoking Tobacco: Never Smokeless Tobacco: Never Alcohol Use Standard Drinks/Week Comments Yes 0 (1 standard drink = 0.6 oz pur e alcohol) Sex and Gender Information Value Date Recorded Sex Assigned at Male 04/02/2023 9:33 AM EST Gender Identity Not on file Sexual Orientation Not on file Job Start Date Occupation Industry Not on file Not on file Not on file Last Filed Vital Signs Vital Sign Reading Time Taken Comments Blood Pressure 100/72 12/13/2023 1:41 PM EDT Pulse 80 12/13/2023 1:41 PM EDT Temperature 36.7 C (98 F) 12/13/2023 1:41 PM EDT Respiratory Rate 17 12/13/2023 1:41 PM EDT Oxygen Saturation 96% 12/13/2023 1:41 PM EDT Inhaled Oxygen Concentration - - Weight 78 kg (171 lb 15.3 oz) 12/13/2023 1:41 PM EDT Height 175.3 cm (5' 9 ) 04/02/2018 8:31 AM EST Body Mass Index 25.39 04/02/2018 8:31 AM EST Plan of Treatment Health Maintenance Due Date Last Done Comments Pneumococcal Vaccine (1 of 2 - PCV) 07/25/1941 07/19/2022, 07/13/2022 Depression Screening 1947 Preventative Health Evaluation 07/25/1955 DTap / Tdap / Td (1 - Tdap) 1956 Fall Risk Assessment 2002 RSV Adult > 60+ Yrs or (1 - 1-dose 75+ series) 2012 Shingrix-Zoster Vaccine (2 o f 2) 09/18/2022 2022 COVID-19 Vaccine (4 - 2023-2 5 season) 2024 03/09/2021, 09/03/2020, 08/12/2020 Influenza Vaccine (#1) 2025 , 02/08/2021 Hepatitis B Vaccines Aged Out No long er eligible based on patient's age to complete this topic RSV Ped < 20 months Aged Out No longe r eligible based on patient's age to complete this topic Care Teams Crm Manager Relationship Specialty Start Date End Date Filippo Keita MD PCP - General Internal Medicine 01/09/23
--- OUTSIDE RECORDS SUMMARY | 2024-12-03 13:39 | XMS_ITS ---
[facility] Organization Unknown Results Test Name/Text Value Interpretation Date Range Source CHLORIDE SERPL [facility] 98.0 mmol/L Normal 12/11/2023 98 - 10 7 [facility] SODIUM SERPL [facility] 139.0 mmol/L Normal 12/11/2023 135 - 14 5 [facility] GLU[facility]SE [facility] 118.0 mg/dL Normal 12/11/2023 70 - 199 [facility] BUN SER[facility] 29.0 mg/dL Above high normal 12/11/2023 9 - 2 0 [facility] CALCIUM [facility] 9.1 mg/dL Normal 12/11/2023 8.4 - 10.2 [facility] CREAT SERPL [facility] 1.2 mg/dL Normal 12/11/2023 0.7 - 1.3 [facility] ANION GAP SERPL [facility] 12.0 mmol/L Normal 12/11/2023 5 - 14 [facility] HCO3 SER [facility] 29.0 mmol/L Normal 12/11/2023 24 - 32 [facility] POTASSIUM SERPL [facility] 4.6 mmol/L Normal 12/11/2023 3.5 - 5 .1 [facility] Glomerular filtration rate/1.73 sq M. predicted 59.0 Below low normal 12/11/2023 60 - [facility] History of Medication Use Medication Directions Dispensed Refills Start Date End Date Stat cephalexin (KEFLEX) capsule 500 mg 500 mg, oral, Once, On Sat07/07/24 at 1415, For 1 dose, Indication: Skin/Soft Tissue 07/07/2024 07/07/2024 completed potassium chloride (KLOR-CON M20) 20 mEq CR tablet TAKE ONE TABLET BY MOUTH EVERY DAY 06/08/2024 active furosemide (LASIX) 40 mg tablet TAKE ONE TABLET BY MOUTH EVERY MORNING 05/26/2024 active metFORMIN XR (GLUCOPHAGE-XR) 500 mg 24 hr tablet Take 1 tablet (500 mg total) by mouth 2 (two) times a day with meals. Do not crush, chew, or split. 04/30/2024 active atenoloL (TENORMIN) 100 mg tablet Take 1 Tablet by mouth daily. 03/09/2024 active betamethasone, augmented, (DIPROLENE) 0.05 % ointment Apply topically 2 (two) times a day. 02/06/2024 active metFORMIN XR (GLUCOPHAGE-XR) 500 mg 24 hr tablet TAKE ONE TABLET BY MOUTH TWICE A DAY WITH MEALS 10/28/2023 active doxycycline (ADOXA) 100 mg tablet Take 1 tablet (100 mg total) by mouth 2 (two) times a day. 07/22/2023 active doxycycline (VIBRAMYCIN) 100 MG capsule Take 1 capsule (100 mg total) by mouth 2 (two) times a day. 03/19/2023 active doxycycline (VIBRA-TABS) 100 MG tablet Take 1 tablet (100 mg total) by mouth 2 (two) times a day. 11/28/2022 active mupirocin (BACTROBAN) 2 % ointment Apply topically daily. 11/21/2022 active mupirocin (BACTROBAN) 2 % ointment Apply topically daily. 11/21/2022 active blood sugar diagnostic (FreeStyle Lite Strips) test strip USE 1 STRIP ONCE DAILY TOO CHECK BLOOD SUGAR 02/20/2021 active pramipexole (MIRAPEX) 0.75 MG tablet 12/28/2019 active pramipexole (MIRAPEX) 0.75 MG tablet 12/28/2019 active QUEtiapine (SEROquel) 25 MG tablet 12/27/2019 active fluticasone (FLONASE) 50 MCG/ACT nasal spray 12/16/2019 active SYMBICORT 160-4.5 MCG/ACT inhaler 12/14/2019 active furosemide (LASIX) 20 MG tablet 03/29/2018 active furosemide (LASIX) 20 MG tablet 03/29/2018 active PROAIR HFA 108 (90 Base) MCG/ACT inhaler 03/05/2018 active PROAIR HFA 108 (90 Base) MCG/ACT inhaler 03/05/2018 active pramipexole (MIRAPEX) 0.5 MG tablet 03/03/2018 active CARTIA XT 240 MG 24 hr capsule 02/03/2018 active atenolol (TENORMIN) tablet 100 mg 01/31/2018 active atenolol (TENORMIN) tablet 100 mg 01/31/2018 active albuterol HFA (PROAIR HFA ; PROVENTIL HFA ; VENTOLIN HFA) 90 mcg/actuation inhaler INHALE 1 TO 2 PUFFS BY MOUTH EVERY 4 TO 6 HOURS NEEDED 07/29/2017 active mirabegron (MYRBETRIQ) 25 mg 24 hr tablet Take 2 tablets (50 mg total) by mouth 1 (one) time each day. active montelukast (SINGULAIR) 10 MG tablet Take 10 mg by mouth every night at bedtime. active montelukast (SINGULAIR) 10 MG tablet Take 10 mg by mouth every night at bedtime. active montelukast (SINGULAIR) 10 MG tablet Take 10 mg by mouth every night at bedtime. active sertraline (ZOLOFT) 50 mg tablet Take 1 Tablet by mouth every morning. active Allergies Allergen Reaction Severity Comment Documented Date Source Statu s OXYCODONE 11/01/2023 [facility] active BEE POLLEN 08/29/2020 [facility] active DUST 04/02/2018 [facility] active HOUSE DUST RUNNY NOSE 04/02/2018 [facility] active Problems Problem Status Onset Date Problem Type Date of Resolution Source Leg skin lesion, right active EncounterDiagnosisAct [facility] MRSA bacteremia active 2020-09-[address] [facility] Osteomyelitis of knee region active 2020-08-29 ProblemAct [facility] Dyslipidemia active 2017-12-09 ProblemAct [facility] Quadriceps tendon rupture active 2020-09-01 ProblemAct [facility] Right-sided low back pain without sciatica active 2017-11-05 ProblemAct [facility] Uncontrolled type 2 diabetes mellitus with hyperglycemia active 2021-02-20 ProblemAct [facility] Lumbar back pain with radiculopathy affecting right lower extremity active 2018-10-02 ProblemAct [facility] Lumbar radiculopathy active 2020-09-01 ProblemAct [facility] Left knee pain active 2017-09-19 [facility] HTN (hypertension) active 2017-05-23 ProblemAct [facility] HARDIK (obstructive sleep apnea) active 2020-06-09 ProblemAct [facility] Insomnia active 2017-05-23 ProblemAct [facility] GERD (gastroesophageal reflux disease) active 2017-05-23 ProblemAct [facility] Erectile dysfunction active 2017-05-23 ProblemAct [facility] Bursitis of right hip active 2017-11-05 ProblemAct [facility] Vitamin D insufficiency active 2017-12-09 [facility] Blister (nonthermal), right knee, initial encounter active EncounterDiagnosisAct [facility] CHF (congestive heart failure) active 2018-01-17 ProblemAct [facility] Asthma active 2020-06-09 ProblemAct [facility] Allergic rhinitis active 2017-12-09 ProblemAct [facility] Parkinson's disease active 2017-05-23 ProblemAct [facility] Inguinal hernia active 2017-05-[address] [facility] Aortic stenosis active 2021-12-[address] [facility] Atrial fibrillation active 2017-05-23 [facility] Osteoarthritis of left knee active 2020-09-01 ProblemAct [facility] PVD (peripheral vascular disease) active 2020-09-01 ProblemAct [facility] Immunizations Vaccine Date Source Lot Number Status Influenza trivalent, 0.5mL ( Fluad) 65yo and older 02/03/2024 [facility] [id number] completed Influenza, Unspecified 04/12/2023 [facility] Zoster recombinant (Shingrix) 19yo and older 2022 [facility] completed Pneumococcal, Unspecified 07/19/2022 [facility] completed Pneumococcal, Unspecified 07/13/2022 [facility] completed Pfizer SARS-CoV-2 COVID-19, mRNA, LNP-S, preservative free 03/09/2021 [facility] [id number] completed Influenza trivalent, 0.5mL ( Fluad) 65yo and older 02/08/2021 [facility] [id number] completed Pfizer SARS-CoV-2 COVID-19, mRNA, LNP-S, preservative free 09/03/2020 [id number] Pfizer SARS-CoV-2 COVID-19, mRNA, LNP-S, preservative free 08/12/2020 [facility] [id number] completed Td Tetanus diptheria (Tdvax) 7yo and older 05/13/2020 [facility] completed Encounters Encounter Type Encounter Reason Primary Diagnosis Location Date Emergency blisters on leg Blister (nonther mal), right knee, initial encounter [facility] 07/07/2024 Emergency Swollen Right leg Cellulitis of right lower limb [facility] 03/21/2024 Ambulatory [facility] 02/20/2024 [facility] 02/20/20 24 [facility] 02/06/20 24 [facility] 01/28/20 24 [facility] 01/14/20 24 [facility] 01/06/20 24 [facility] 12/30/19 24 Ambulatory 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 [facility] 12/23/2023 [facility] 12/19/19 24 [facility] 12/18/19 24 Emergency Other injury of unspecified body region, initial encounter Other injury of unspecified body region, initial encounter [facility] 12/13/2023 Ambulatory 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 [facility] 12/11/2023 [facility] 12/11/19 24 [facility] 11/29/19 24 [facility] 11/08/19 24 [facility] 10/31/19 24 [facility] 10/17/19 24 [facility] 10/03/19 24 [facility] 09/19/19 24 [facility] 09/05/19 24 [facility] 08/29/19 24 [facility] 08/20/19 24 [facility] 08/08/19 24 [facility] 08/02/19 24 [facility] 07/25/19 24 Ambulatory Disorder of the skin and subcutaneous tissue, unspecified Disorder of the skin and subcutaneous tissue, unspecified [facility] 07/11/2023 [facility] 07/11/19 24 [facility] 06/27/19 24 [facility] 06/14/19 24 [facility] 05/30/19 24 [facility] 05/23/19 24 [facility] 05/17/19 24 [facility] 05/09/20 23 [facility] 04/25/20 23 Ambulatory [facility] 04/12/20 23 Ambulatory [facility] 04/02/20 23 Ambulatory Unspecified open wound, right thigh, subsequent encounter Unspecified open wound, right thigh, subsequent encounter [facility] 04/02/2023 Ambulatory [facility] 03/26/20 23 Ambulatory [facility] 03/19/20 23 Ambulatory [facility] 03/12/20 23 Ambulatory [facility] 03/04/20 23 Ambulatory [facility] 02/29/20 23 Ambulatory [facility] 02/20/20 23 Ambulatory [facility] 01/10/20 23 Ambulatory [facility] 12/27/19 23 Ambulatory [facility] 12/13/19 23 Ambulatory [facility] 11/29/19 23 Ambulatory [facility] 11/22/19 23 Ambulatory [facility] 11/17/19 23 Ambulatory [facility] 11/10/19 23 Ambulatory [facility] 11/03/19 23 Ambulatory [facility] 10/27/19 23 Care Team Organization Name Specialty Phone Email Start Date End Da te [facility] 03[facility]23/2024 [facility] 03/21/2024 [facility] 12/13/2023 [facility]IN [facility] 07/12/2023 [facility] 03/0 05/202311/24/2024 [facility]IN [facility] 01/0901/09/2023 [facility] 10/26/2022 11/24/2024 [facility] JUDITH [facility] 10/26/2022 [facility] 03/20/2022 12/30/19 24
== END 2024-12-03 13:52 | disposition home or self-care (01) ==
LOC: HO.HSM 13:34
PROVIDERS: PCP Internal Medicine; Visit Provider Registered Nurse
DX: G31.83 Neurocognitive disorder with Lewy bodies (principal); F02.80 Dementia in other diseases classified elsewhere, unspecified severity, without behavioral disturbance, psychotic disturbance, mood disturbance, and anxiety; G21.9 Secondary parkinsonism, unspecified; F32.A Depression, unspecified; R26.89 Other abnormalities of gait and mobility
CPT/HCPCS: 99214